=== PATIENT | female | born 1965 | race Caucasian/White ===

== ENCOUNTER 2021-06-18 03:35 | Emergency (ER) | payer OTHER ==
[~2021-06-18 03:35] MED LIST: AMITRIPTYLINE100 MG PO; CELEXA20 MG PO; COLACE100 MG PO; K-DUR TAB 10 M10 MEQ PO; LASIX20 MG PO; MIRALAX17 GM PO; TENORMIN 50 MG50 MG PO; VISTARIL 50 MG50 MG PO; ZANTAC 150 MG150 MG PO
[2021-06-18 04:12] LABS: HEMOGLOBIN 14.1 gm/dl (12.3-15.3); RED BLOOD COUNT 5.3 M/UL (4.00-5.10); WHITE BLOOD COUNT 8.1 K/UL (4.5-11.0)
[2021-06-18 04:41] LABS: BUN/CREATININE RATIO 13 (0-10)
[2021-06-18] MEDS ORDERED: PROTONIX40 MG PO (07:28)
== END 2021-06-18 07:36 | disposition home or self-care (01) ==
LOC: ER1 03:35
PROVIDERS: Physician Assistant
DX: K59.00 Constipation, unspecified (principal); K29.80 Duodenitis without bleeding; K21.9 Gastro-esophageal reflux disease without esophagitis; E11.9 Type 2 diabetes mellitus without complications; Z85.3 Personal history of malignant neoplasm of breast; Z88.6 Allergy status to analgesic agent; Z88.5 Allergy status to narcotic agent; Z98.84 Bariatric surgery status
CPT/HCPCS: 80053; 81001; 82550; 82553; 83690; 84484; 85025; 93005; 96374; 96375; 96376; 99284; J1885; J2405; Q9967

== ENCOUNTER 2021-08-17 11:20 | Emergency (ER) | payer OTHER ==
[~2021-08-17 11:20] MED LIST changes: +PROTONIX40 MG PO
[2021-08-17 12:05] LABS: RED BLOOD COUNT 4.81 M/UL (4.00-5.10); WHITE BLOOD COUNT 4.1 K/UL (4.5-11.0)
[2021-08-17 12:21] LABS: BUN/CREATININE RATIO 11 (0-10)
== END 2021-08-17 13:34 | disposition home or self-care (01) ==
LOC: ER1 11:20
PROVIDERS: Physician Assistant
DX: S86.911A Strain of unspecified muscle(s) and tendon(s) at lower leg level, right leg, initial encounter (principal); E11.9 Type 2 diabetes mellitus without complications; I10 Essential (primary) hypertension; Z86.718 Personal history of other venous thrombosis and embolism; Z88.5 Allergy status to narcotic agent; Z88.6 Allergy status to analgesic agent; X58.XXXA Exposure to other specified factors, initial encounter
CPT/HCPCS: 80053; 85025; 85610; 85730; 93970; 99284

== ENCOUNTER → 2021-09-01 | Day surgery (SDC) | payer OTHER ==
[~2021-09-01] VITALS: Ht 162.6 cm; Wt 100.7 kg
[~2021-09-01] MED LIST changes: +CITALOPRAM HBR40 MG PO; +GLUCOPHAGE 500500 MG PO; +LISINOPRIL10 MG PO
== END | disposition home or self-care (01) ==
LOC: OR 07:01
DX: Z12.11 Encounter for screening for malignant neoplasm of colon (principal); K21.00 Gastro-esophageal reflux disease with esophagitis, without bleeding; K63.3 Ulcer of intestine; K29.80 Duodenitis without bleeding; K31.9 Disease of stomach and duodenum, unspecified; I10 Essential (primary) hypertension; E11.9 Type 2 diabetes mellitus without complications; K59.09 Other constipation; G47.30 Sleep apnea, unspecified; E66.9 Obesity, unspecified; F41.9 Anxiety disorder, unspecified; Z99.89 Dependence on other enabling machines and devices; Z68.37 Body mass index [BMI] 37.0-37.9, adult; Z79.84 Long term (current) use of oral hypoglycemic drugs; Z79.899 Other long term (current) drug therapy; Z88.5 Allergy status to narcotic agent; Z88.8 Allergy status to other drugs, medicaments and biological substances
CPT/HCPCS: 43239; G0121; 82962; J2704; J7040